=== PATIENT | female | born 1995 | race Two or more races ===

== ENCOUNTER 2024-12-03 21:20 | Emergency (ER) | payer OTHER ==
[~2024-12-03] VITALS: Ht 154.9 cm; Wt 81.8 kg
[2024-12-03 21:50] VITALS: BP 116/87; PULSE 105; RESP 16; TEMP 98.3; O2SAT 97
[2024-12-03 21:59] LABS: PLATELET COUNT (AUTO) 146 K/uL (150-450); RED BLOOD CELL COUNT(AUTO) 4.07 MIL/uL (4.00-5.20); RED CELL DISTRIBUTION WIDTH 12.7 % (11.5-14.5); WHITE BLOOD COUNT (AUTO) 6.1 K/uL (4.5-11.0)
[2024-12-03 22:13] LABS: CALCIUM, TOTAL 8.2 mg/dL (8.8-10.5); CREATININE 0.48 mg/dL (0.60-1.30); GLOMERULAR FILTR. RATE CALC > 60 mL/min (>60); GLUCOSE,RANDOM 86 mg/dL (70-110); SODIUM SERUM 136 mmol/L (136-145); UREA NITROGEN, BLOOD 5 mg/dL (7-18)
== END 2024-12-03 23:44 | disposition home or self-care (01) ==
LOC: EMS 21:20
DX: O26.893 Other specified pregnancy related conditions, third trimester (principal); Z3A.33 33 weeks gestation of pregnancy
CPT/HCPCS: 76805; 80048; 85025; 99284